=== PATIENT | female | born 1955 | race Caucasian/White ===

== ENCOUNTER 2019-10-07 14:24 | Emergency (ER) | payer MEDICARE ==
[~2019-10-07] VITALS: Ht 165.1 cm; Wt 62.0 kg
[2019-10-07] MEDS ORDERED: advil (14:57)
[2019-10-07] MEDS ORDERED: robitussin (14:57)
[2019-10-07] MEDS ORDERED: ACETAMINOPHEN 325MG TABLET PO ONE (16:00)
[2019-10-07 17:10] VITALS: BP 132/89
== END 2019-10-07 17:32 | disposition home or self-care (01) ==
LOC: ER 14:24
DX: J06.9 Acute upper respiratory infection, unspecified (principal); R03.0 Elevated blood-pressure reading, without diagnosis of hypertension
CPT/HCPCS: 87804; 99283